=== PATIENT | male | born 1960 | race Caucasian/White ===

== ENCOUNTER → 2018-12-13 | Outpatient (CLI) | payer BC ==
--- NOTE | 2018-12-13 17:09 | PCVCIMAG ---
APPROVED REPORT Study performed: 12/13/2018 15:50:42 Exam: Stress Echocardiogram Indication: Chest pain , Dyspnea Patient Location: Echo lab Stress Nurse: Sugey Puri RN Room #: 2 Status: routine Ht: 6 ft 1 in HR: 82 bpm BP: 116/72 mmHg Rhythm: NSR Medical History Cardiac Risk Factors: FHX of CAD Previous Cardiac Procedures: none Pretest Chest Pain Characteristics: No chest pain Exercise History: Physically active Procedure The patient underwent an Exercise Stress Test using the Rafaela Protocol. Blood pressure, heart rate, and EKG were monitored. An Echocardiogram was performed by process development technician in four stages in quad fashion. At peak stress, four selected images were obtained and placed side by side with resting images for comparison. Stress Test Details Stress Test: Exercise stress testing was performed using a Rafaela protocol. HR Resting HR: 76 bpmMax Heart Rate (APMHR): 161 bpm Max HR Achieved: 196 bpmTarget HR (85% APMHR): 136 bpm % of APMHR: 121 Recovery HR: 93 bpm HR response to stress: Normal HR response to stress BP Resting BP: 116/72 mmHg Max BP: 154/70 mmHg Recovery BP: 140/76 mmHg BP response to stress: Normal blood pressure response to stress. ECG Resting ECG: Incomplete RBBB w/possible pulmonary disease pattern Stress ECG: Incomplete RBBB w/possible pulmonary disease pattern ST Change: Nondiagnostic ST abnormalities Arrhythmia: Rare PVCs Recovery ECG: Incomplete RBBB w/possible pulmonary disease pattern Recovery ST Change: Equivocal Recovery Arrhythmia: None Clinical Reason for Termination: Maximal effort Stress Symptoms: none Exercise duration: 13 min 04 sec Highest Stage Achieved: Stage 5: 5.0 mph at 18% grade. Exercise capacity: 17.2 METs Overall Exercise Capacity for Age: Excellent Scale: Active Angina Score: None No complications. Stress ECG Conclusion The patient exercised according to the RAFAELA protocol for 13:04 mins; achieving a work level of 17.2 METS. The resting heart rate of 76 bpm roopa to a maximum heart rate of 196 bpm. This value represent 121% of the maximal, age-predicted heart rate. The resting blood pressure of 116/72 mmHg, roopa to a maximum blood pressure of 154/70 mmHg. The exercise test was stopped due to fatigue. Pre-Stress Echo The resting Echocardiogram showed normal left ventricular contractility with an estimated Ejection Fraction of about 55-60%. Normal wall motion in all segments on baseline images. Post-Stress Echo The stress Echocardiogram showed normal left ventricular contractility with an estimated Ejection Fraction of about 65-70%. Normal augmentation of wall motion in all segments on post stress images. Clinical No clinical or ECG evidence for ischemia. Conclusion Clinical Response: Non-ischemic Exercise Capacity: Superior Stress ECG Response: Equivocal Stress Echo Images: Non-ischemic No clinical or echocardiographic evidence for ischemia. No echocardiographic evidence for exercise induced ischemia. Normal stress echocardiogram with maximal exercise stress. <Conclusion> No clinical or echocardiographic evidence for ischemia. No echocardiographic evidence for exercise induced ischemia. Normal stress echocardiogram with maximal exercise stress.
== END | disposition home or self-care (01) ==
LOC: PCVCIMAG 13:00
PROVIDERS: ATTEND Internal Medicine Cardiovascular Disease
DX: R07.9 Chest pain, unspecified (principal); R06.09 Other forms of dyspnea
CPT/HCPCS: 93325; 93351